=== PATIENT | female | born 1980 | race Caucasian/White ===

== ENCOUNTER → 2020-06-17 | Outpatient (CLI) | payer OTHER ==
[~2020-06-17] MED LIST: B6-FOLIC ACID1 CAP PO; Motrin,Rufen800 MG PO; NIACIN1 TAB PO; NKHM PO; PERCOCET 325 MG1 TA5 PO; PRE-NATAL1 TA1 PO
== END | disposition home or self-care (01) ==
LOC: RAD 14:56
PROVIDERS: ATTEND Nurse Practitioner Family
DX: R05 Cough (principal)